=== PATIENT | female | born 1980 | race Hispanic/Latino ===

== ENCOUNTER 2017-06-18 03:05 | Emergency (ER) | payer OTHER ==
[2017-06-18 03:47] LABS: RBC URINE 3 /hpf (0-3); URINE BILIRUBIN NEGATIVE (NEGATIVE); URINE BLOOD NEGATIVE (NEGATIVE); URINE COLOR Yellow (YELLOW); URINE GLUCOSE (UA) NORMAL (Normal); URINE KETONE NEGATIVE (NEGATIVE); URINE PROTEIN NEGATIVE (NEGATIVE); URINE UROBILINOGEN NORMAL mg/dL (0.2-1.0); WBC URINE 1 /hpf (0-5)
[2017-06-18 03:53] LABS: URINE LEUKOCYTE ESTERASE TRACE Leu/uL (Negative)
[2017-06-18] MEDS ORDERED: Sodium Chloride 0.9% 1,000 ML IV ONE (03:59)
[2017-06-18] MEDS ORDERED: Sodium Chloride 0.9% 1,000 ML ONE (04:05)
--- NOTE | 2017-06-18 04:08 | C.PDOC ---
History Of Present Illness Patient presents c/o lower back pain, abdominal cramping, and greenish vaginal discharge for 3 weeks. Patient states that she was seen at urgent care and was treated for UTI and yeast infection, but the symptoms have worsened prompting visit. Patient denies fever, chills, nausea, vomiting, chest pain, or SOB. NO weakness or numbness. Time Seen by Provider: 06/18/17 03:14 Chief Complaint (Nursing): Back Pain History Per: Patient History/Exam Limitations: no limitations Onset/Duration Of Symptoms: Days (3 weeks), Persistent Current Symptoms Are (Timing): Still Present Quality Of Discomfort: "Pain" Pain Scale Rating Of: 7 Associated Symptoms: denies: Incontinence, New Weakness, New Numbness Exacerbating Factor(s): Nothing Recent travel outside of the [place]: No Additional History Per: Patient Past Medical History Reviewed: Historical Data, Nursing Documentation, Vital Signs Vital Signs: Last Vital Signs Temp 98.1 F 06/18/17 07:00 Pulse 70 06/18/17 07:00 Resp 18 06/18/17 07:00 BP 107/66 06/18/17 07:00 Pulse Ox 97 06/20/17 08:33 - Medical History PMH: No Chronic Diseases Surgical History: No Surg Hx Family History: States: Unknown Family Hx - Social History Hx Alcohol Use: Yes Hx Substance Use: Yes - Immunization History Hx Tetanus Toxoid Vaccination: No Hx Influenza Vaccination: No Hx Pneumococcal Vaccination: No Review Of Systems Except As Marked, All Systems Reviewed And Found Negative. Constitutional: Negative for: Fever, Chills Cardiovascular: Negative for: Chest Pain Respiratory: Negative for: Shortness of Breath Gastrointestinal: Positive for: Other (Abdominal cramping). Negative for: Nausea, Vomiting Genitourinary: Positive for: Vaginal Discharge (Greenish) Musculoskeletal: Positive for: Back Pain (lower) Neurological: Negative for: Weakness, Numbness Physical Exam - Physical Exam Appears: Non-toxic, No Acute Distress Skin: Warm, Dry, No Rash Head: Atraumatic, Normacephalic Eye(s): bilateral: Normal Inspection Oral Mucosa: Moist Throat: No Erythema, No Exudate Neck: Normal ROM, Supple Cardiovascular: Rhythm Regular, No Friction Rub, No Murmur Respiratory: Normal Breath Sounds, No Rales, No Rhonchi, No Stridor, No Wheezing Gastrointestinal/Abdominal: Soft, No Tenderness Back: CVA Tenderness (Right sided) Pelvic: Normal External Exam, No Vaginal Bleeding, Vaginal Discharge (white/ yellow), Cervical Motion Tenderness Extremity: Normal ROM, No Swelling Neurological/Psych: Oriented x3, Normal Speech, Normal Cognition, Normal Motor, Normal Sensation Gait: Steady ED Course And Treatment - Laboratory Results Result Diagrams: 06/18/17 04:15 06/18/17 04:15 O2 Sat by Pulse Oximetry: 97 (RA) Pulse Ox Interpretation: Normal Medical Decision Making Medical Decision Making: Impression: * lower back pain, abdominal cramping, and greenish vaginal discharge for 3 weeks. Possible UTI, pyelonephritis, PID, Plans: * CT Abd/Pel with IV * Blood labs * Toradol * IV fluids * UA Ct abd pelvis, labs and UA was negative. The pelvic was (+) for CMT, so will treat for PID. On re-exam, the patient reports improvement of symptoms. Abdomen is soft, non-tender and patient is tolerating PO well. Lungs are CTA and heart is RRR. Disposition - Disposition Referrals: [facility] [Outside] Disposition: HOME/ ROUTINE Disposition Time: 07:03 Condition: GOOD Additional Instructions: Follow up with the medical doctor within 1-2 days. Return if worsened. Prescriptions: Doxycycline Hyclate 100 mg PO BID #28 cap metroNIDAZOLE [Flagyl] 500 mg PO BID #28 tab Naproxen [Naprosyn] 500 mg PO BID #20 tab traMADol [Ultram] 50 mg PO Q6 PRN #20 tab PRN Reason: Pain Instructions: Pelvic Inflammatory Disease (ED) Forms: [facility] (Russian) - Clinical Impression Clinical Impression: PID (acute pelvic inflammatory disease) - Scribe Statement The provider has reviewed the documentation as recorded by the Scribe Jose Juan bae All medical record entries made by the Scribe were at my direction and personally dictated by me. I have reviewed the chart and agree that the record accurately reflects my personal performance of the history, physical exam, medical decision making, and the department course for this patient. I have also personally directed, reviewed, and agree with the discharge instructions and disposition.
[2017-06-18 04:21] LABS: BASO % 0.5 % (0.0-2.0); EOS # 0.1 K/uL (0.0-0.7); EOS % 1.1 % (0.0-4.0); HEMATOCRIT 37.5 % (34.0-47.0); LYMPH # 2.6 K/uL (1.0-4.3); LYMPH % 29.4 % (20.0-40.0); MEAN CELL VOLUME 93.9 fL (81.0-99.0); MEAN CORPUSCULAR HEMOGLOBIN 31.7 pg (27.0-31.0); MEAN CORPUSCULAR HGB CONC 33.7 g/dL (33.0-37.0); MEAN PLATELET VOLUME 9.2 fL (7.2-11.7); MONO # 0.9 K/uL (0.0-0.8); MONO % 10.3 % (0.0-10.0); RED CELL DISTRIBUTION WIDTH 13.9 % (11.5-14.5); WHITE BLOOD COUNT 8.9 K/uL (4.8-10.8)
[2017-06-18 04:30] LABS: CHLORIDE 107 mmol/L (98-107); SODIUM 142 mmol/L (132-148)
[2017-06-18 04:31] LABS: POTASSIUM 4.3 mmol/L (3.6-5.2)
[2017-06-18 04:33] LABS: ALB/GLOB RATIO 1.4 (1.0-2.1); ALKALINE PHOSPHATASE 50 U/L (38-126); ALT/SGPT 26 U/L (9-52); AST/SGOT 18 U/L (14-36); BILIRUBIN,TOTAL 0.4 mg/dL (0.2-1.3); BLOOD UREA NITROGEN 16 mg/dL (7-17); CARBON DIOXIDE 23 mmol/L (22-30); GFR AFRICAN-AMERICAN > 60; GLUCOSE,RANDOM 90 mg/dL (65-105); TOTAL PROTEIN 7.3 g/dL (6.3-8.3)
[2017-06-18] MEDS ORDERED: Iodixanol 320 MG/ML 100 ML BOTTLE IV ONE (04:53)
[2017-06-18 06:00] VITALS: RESP 18
--- NOTE | 2017-06-18 06:16 | CT ---
EXAM: CT Abdomen and Pelvis With Intravenous Contrast EXAM DATE/TIME: 06/18/2017 3:59 AM CLINICAL HISTORY: 37 years old, female; Pain; Abdominal pain; Additional info: Lower abd pain, l flank pain, R/O pyelo TECHNIQUE: Axial computed tomography images of the abdomen and pelvis with intravenous contrast. All CT scans at this facility use one or more dose reduction techniques, viz.: automated exposure control; ma/kV adjustment per patient size (including targeted exams where dose is matched to indication; i.e. head); or iterative reconstruction technique. Coronal and sagittal reformatted images were created and reviewed. CONTRAST: 100 mL of [id number] administered intravenously. COMPARISON: No relevant prior studies available. FINDINGS: The liver is normal. The spleen is normal. The pancreas is normal. No gallstones. The kidneys have slightly lobulated borders bilaterally. No striated nephrograms to suggest pyelonephritis. No hydronephrosis or perinephric stranding. The gastric lumen is distended with fluid. Fluid and stool filled small bowel loops are noted without evidence of obstruction abnormal thickening. Moderate amount stool within the right colon. Probable partial identification of normal appendix axial images 138 through 141. There is a partially collapsed right ovarian cyst measuring 1.5 x 1.3 cm. Left ovarian follicles are noted. IMPRESSION: Partially collapsed right ovarian cyst. Varying degrees of bowel distension as described above without evidence of obstruction or inflammation.
[2017-06-18] MEDS ORDERED: cefTRIAXone (Rocephin) 250 mg Inj IM STA (06:25)
[2017-06-18 07:00] VITALS: BP 107/66; PULSE 70; TEMP 98.1; O2SAT 97
== END 2017-06-18 07:11 | disposition home or self-care (01) ==
LOC: C.ER 03:05
DX: N73.9 Female pelvic inflammatory disease, unspecified (principal)
CPT/HCPCS: 74177; 80053; 81001; 83690; 84703; 85025; 96361; 96372; 96374; 96375; 99284; J0696; J1885; J2270; J7040; Q9967